=== PATIENT | female | born 1995 | race Caucasian/White ===

== ENCOUNTER 2023-04-10 06:50 | Emergency (ER) | payer MEDICAID ==
[2023-04-10 07:01] VITALS: BP 127/73; O2SAT 100
--- NOTE | 2023-04-10 07:28 | ED Physician Documentation ---
PD HPI HEENT - Stated complaint Stated Complaint: LT SIDE TOOTH PX - Chief complaint Chief Complaint: Heent - History obtained from History obtained from: Patient - History of Present Illness Timing - onset: How many days ago (few) Timing - duration: Days (ew) Timing - details: Gradual onset (f), Still present Location: Tooth (left lower tooth pain with increasing pain and swelling. Cannot get to dentist until week or more.) Associated symptoms: Facial swelling. No: Fever, Congestion Similar symptoms before: Diagnosis Review of Systems Constitutional: denies: Fever, Chills Nose: denies: Rhinorrhea / runny nose, Congestion Throat: reports: Dental pain / toothache. denies: Sore throat Respiratory: denies: Cough PD PAST MEDICAL HISTORY - Past Medical History Past Medical History: Yes Derm: Herpes zoster - Past Surgical History Past Surgical History: No - Present Medications Home Medications: Ambulatory Orders Medication Instructions Recorded Confirmed Norgestimate-Ethinyl Estradiol 1 each PO DAILY 04/10/23 04/10/23 [Ortho Tri-Cyclen 28 Tablet] clindamycin HCL [Clindamycin HCl] 300 mg PO TID 7 Days #20 cap 04/10/23 valACYclovir [Valtrex] 500 mg PO UD 04/10/23 04/10/23 - Allergies Allergies/Adverse Reactions: Allergies Allergy/AdvReac Type Severity Reaction Status Date / Time No Known Drug Allergies Allergy Verified 04/10/23 07:00 - Social History Does the pt smoke?: Yes Smoking Status: Current every day smoker Does the pt drink ETOH?: No Does the pt have substance abuse?: No PD ED PE NORMAL - Vitals Vital signs reviewed: Yes - General General: Alert and oriented X 3, No acute distress, Well developed/nourished - HEENT HEENT: Pharynx benign. No: Dentition benign (cavities noted. Swelling and tender without fluctuance left gumline. ) - Neck Neck: Supple, no meningeal sign - Cardiac Cardiac: RRR, No murmur - Respiratory Respiratory: Clear bilaterally Results - Vitals Vitals: Oxygen O2 Source Room air PD Medical Decision Making - ED course Complexity details: considered differential (swelling and pain left tooth/gum area c/w dental infection. No fluctuance to need incising. ), d/w patient Departure - Departure Disposition: 01 Home, Self Care Clinical Impression: Dental infection Condition: Stable Record reviewed to determine appropriate education?: Yes Instructions: ED Abscess Dental Prescriptions: clindamycin HCL [Clindamycin HCl] 300 mg PO TID 7 Days #20 cap Comments: Clindamycin three times daily. Tylenol and/or ibuprofen as needed for pains. Follow-up with dentist for more definitive care. I sent your prescription to the [facility] pharmacy here in [place]. Forms: PCP List Discharge Date/Time: 04/10/23 07:50
[2023-04-10] MEDS: CLINDAMYCIN 150 MG CAPSULE PO STA (07:48)
== END 2023-04-10 07:50 | disposition home or self-care (01) ==
LOC: ED 06:50
DX: K04.7 Periapical abscess without sinus (principal); F17.200 Nicotine dependence, unspecified, uncomplicated
CPT/HCPCS: 99282; 99283; A9270